=== PATIENT | female | born 1940 | race African-American/Black ===

== ENCOUNTER 2017-03-11 08:00 | Outpatient (CLI) | payer MEDICARE, OTHER | END 2017-03-11 08:01 | disposition home or self-care (01) | LOC: BICMAMMO 08:00 | PROVIDERS: ATTEND Internal Medicine Medical Oncology | DX: Z08 Encounter for follow-up examination after completed treatment for malignant neoplasm (principal); Z85.3 Personal history of malignant neoplasm of breast | CPT/HCPCS: G0279 ==

== ENCOUNTER 2017-04-28 10:58 | Outpatient (CLI) | payer MEDICARE, OTHER ==
[2017-04-28 12:58] LABS: ALT (SGPT) 16 U/L (8-55); AST (SGOT) 20 U/L (5-34); Albumin 3.6 g/dL (3.4-4.8); Alkaline Phosphatase 44 U/L (40-150); Anion Gap 12 mmol/L (10-20); BUN (Urea Nitrogen) 20 mg/dL (9.8-20.1); Bilirubin, Total 0.5 mg/dL (0.2-1.2); Calc. Creatinine Clearance 0 mL/min (70-130); Calcium 10.9 mg/dL (7.8-10.44); Carbon Dioxide 28 mmol/L (23-31); Chloride 106 mmol/L (98-107); Estimated GFR-MDRD 81; Globulin 2.3 g/dL (2.4-3.5); Glucose 85 mg/dL (83-110); Protein, Total 5.9 g/dL (6.0-8.3); Sodium 142 mmol/L (136-145)
[2017-04-28 13:07] LABS: Eosinophils 2 % (0-10); Hemoglobin 11.6 g/dL (12.0-16.0); Lymphocytes 40 % (21-51); MDiff Complete? YES; Mean Corpuscular HGB CONC 31.4 g/dL (32.0-36.0); Mean Corpuscular Hemoglobin 32.9 pg (27.0-31.0); Monocytes 10 % (0-10); Neutrophil 43 % (42-75); Platelet Count 131 thou/uL (130-400); Polychromasia SLIGHT = 2-3 cells (100X) (0-2/hpf); RBC Distribution Width 11.5 % (11.5-14.5); Reactive Lymphocytes 5 % (0-10); Red Blood Cell (RBC) Count 3.53 mill/uL (4.20-5.40); White Blood Cell (WBC) Count 4.3 thou/uL (4.8-10.8)
--- NOTE | 2017-04-29 23:38 | EKG ---
Test Reason : Blood Pressure : / mmHG Vent. Rate : 059 BPM Atrial Rate : 059 BPM P-R Int : 124 ms QRS Dur : 080 ms QT Int : 426 ms P-R-T Axes : 047 058 181 degrees QTc Int : 421 ms Sinus bradycardia Abnormal ECG When compared with ECG of 16-APR-2016 08:46, ST no longer depressed in Anterior leads Confirmed by Jose Alberto BENAVIDEZ ([id number]) on 04/29/2017 11:37:51 PM Referred By: NENITA Confirmed By:Jose Alberto BENAVIDEZ
== END 2017-04-28 10:59 | disposition home or self-care (01) ==
LOC: LABBT 10:58
PROVIDERS: ATTEND Surgery
DX: Z01.812 Encounter for preprocedural laboratory examination (principal); Z01.810 Encounter for preprocedural cardiovascular examination; Z85.3 Personal history of malignant neoplasm of breast; Z88.2 Allergy status to sulfonamides; Z88.0 Allergy status to penicillin
CPT/HCPCS: 80053; 85025; 93005; 93010

== ENCOUNTER 2017-04-30 05:40 | Day surgery (SDC) | payer MEDICARE, OTHER ==
[2017-04-28 11:25] VITALS: BMI 33.2
[2017-04-30] MEDS ORDERED: Lidocaine 2% w/Epinephrine 1:200K 20 ML VIAL ONE (06:41)
[2017-04-30] MEDS ORDERED: Bupivacaine 0.25% HCL 30 ML VIAL ONE (06:41)
[2017-04-30] MEDS ORDERED: Fentanyl 100 MCG/2 ML VIAL ONE (06:54)
[2017-04-30] MEDS ORDERED: Levofloxacin 500 mg/D5W 100 ml Premix Bag ONE (07:25)
--- NOTE | 2017-04-30 12:25 | OP ---
PREOPERATIVE DIAGNOSIS: Completed chemotherapy. SURGEON: Arnulfo Zee M.D. PROCEDURE PERFORMED: Removal of MediPort. INDICATIONS: A 77-year-old female who has completed chemotherapy for breast cancer and no longer nee ds MediPort. She is here for removal. FINDINGS: Intact system and catheter. DESCRIPTION OF PROCEDURE: After informed consent was obtained, the patient was taken to the operatin g room and given total intravenous anesthesia, placed in the supine position. Her chest was prepped and draped in the usual fashion. Local anesthesia infiltrated subcutaneously and deep with 0.5% Dominguez kieran. A transverse incision was performed through the old scar. Subcu divided sharply down to the M ediPort. The sutures were removed. The MediPort was removed. The catheter removed. The channel th at has housed, the catheter was ligated with a [id number] of 3-0 Vicryl. Hemostasis achieved wi electrocautery. Subcutaneous reapproximated with interrupted 3-0 Vicryl. Skin closed with a runn ing subcuticular 4-0 Rapide. Steri-Strips applied. Sterile bandage applied. The patient tolerated the procedure well and transferred to recovery in good condition. Sponge and needle count verified c orrect x2.
== END 2017-04-30 09:17 | disposition home or self-care (01) ==
LOC: SDC 05:40
PROVIDERS: ATTEND Surgery
PROC: 0JPT3WZ Removal of Totally Implantable Vascular Access Device from Trunk Subcutaneous Tissue and Fascia, Percutaneous Approach (ICD-10-PCS; principal; 2017-04-30)
DX: Z45.2 Encounter for adjustment and management of vascular access device (principal); I10 Essential (primary) hypertension; E78.00 Pure hypercholesterolemia, unspecified; M19.90 Unspecified osteoarthritis, unspecified site; E05.90 Thyrotoxicosis, unspecified without thyrotoxic crisis or storm; E89.2 Postprocedural hypoparathyroidism; E78.5 Hyperlipidemia, unspecified; M81.0 Age-related osteoporosis without current pathological fracture; Z85.3 Personal history of malignant neoplasm of breast; Z92.21 Personal history of antineoplastic chemotherapy; Z83.3 Family history of diabetes mellitus; Z80.9 Family history of malignant neoplasm, unspecified; Z79.01 Long term (current) use of anticoagulants; Z79.82 Long term (current) use of aspirin; Z79.899 Other long term (current) drug therapy; Z88.2 Allergy status to sulfonamides; Z88.0 Allergy status to penicillin; Z88.8 Allergy status to other drugs, medicaments and biological substances; Z90.711 Acquired absence of uterus with remaining cervical stump; Z98.41 Cataract extraction status, right eye; Z98.42 Cataract extraction status, left eye; Z98.890 Other specified postprocedural states
CPT/HCPCS: J1956; J3010; S0020

== ENCOUNTER 2017-05-28 09:13 | Outpatient (CLI) | payer MEDICARE, OTHER ==
--- NOTE | 2017-05-28 12:19 | ULT ---
COMPLETE BILATERAL RENAL ULTRASOUND: HISTORY: A 77-year-old female with microhematuria. FINDINGS: The right kidney measures 9.3 x 3.7 x 3.6 cm. The left kidney measures 9.8 x 4.7 x 4 cm. No renal h ydronephrosis or perinephric process. The bladder is only minimally full but is unremarkable. IMPRESSION: Unremarkable bilateral renal ultrasound. No hydronephrosis or other acute process. POS: KATHLEEN
== END 2017-05-28 09:14 | disposition home or self-care (01) ==
LOC: ULT 09:13
PROVIDERS: ATTEND Urology
DX: R31.29 Other microscopic hematuria (principal)
CPT/HCPCS: 76770

== ENCOUNTER 2018-04-08 08:54 | Outpatient (CLI) | payer MEDICARE, OTHER | END 2018-04-08 08:55 | disposition home or self-care (01) | LOC: BICMAMMO 08:54 | PROVIDERS: ATTEND Internal Medicine Medical Oncology | DX: Z08 Encounter for follow-up examination after completed treatment for malignant neoplasm (principal); Z85.3 Personal history of malignant neoplasm of breast; Z80.3 Family history of malignant neoplasm of breast | CPT/HCPCS: 77066; G0279 ==

== ENCOUNTER 2019-04-09 13:53 | Outpatient (CLI) | payer MEDICARE, OTHER ==
--- NOTE | 2019-04-09 14:36 | MMO ---
Bilateral MAMMO Bilat Diag [facility]DI+PATY. CLINICAL HISTORY: Patient is 79 years old and is seen for diagnostic exam. The patient has no family history of breast cancer. 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 The patient has a history of right Ultrasound Guided Core Biopsy in July, and left Lumpectomy in July, - malignant. VIEWS: The views performed were: bilateral craniocaudal with tomosynthesis; bilateral mediolateral oblique with tomosynthesis; and bilateral mediolateral with tomosynthesis. FILMS COMPARED: The present examination has been compared to prior imaging studies performed at [facility] on 06/27/2015, 03/06/2016, 03/11/2017 and 04/08/2018. This study has been interpreted with the assistance of computer-aided detection. MAMMOGRAM FINDINGS: The breasts are heterogeneously dense, which could obscure a lesion on mammography. Finding 1: There are stable areas of skin thickening and stable post operative changes seen in both breasts. Finding 2: There are stable benign appearing calcifications seen in both breasts. There are no suspicious masses, suspicious calcifications, or new areas of architectural distortion. IMPRESSION: THERE IS NO MAMMOGRAPHIC EVIDENCE OF MALIGNANCY. A ROUTINE FOLLOW-UP MAMMOGRAM IN 1 YEAR IS RECOMMENDED. THE RESULTS OF THIS EXAM WERE SENT TO THE PATIENT. ACR BI-RADS Category 2 - Benign finding MAMMOGRAPHY NOTE: 1. A negative mammogram report should not delay a biopsy if a dominant of clinically suspicious mass is present. 2. Approximately 10% to 15% of breast cancers are not detected by mammography. 3. Adenosis and dense breasts may obscure an underlying neoplasm. Reported by: DOM NINO MD Electonically Signed: [id number]
== END 2019-04-09 13:54 | disposition home or self-care (01) ==
LOC: BICMAMMO 13:53
PROVIDERS: ATTEND Internal Medicine Medical Oncology
DX: D05.01 Lobular carcinoma in situ of right breast (principal)
CPT/HCPCS: 77066; G0279

== ENCOUNTER 2019-05-26 13:37 | Outpatient (CLI) | payer MEDICARE, OTHER ==
--- NOTE | 2019-05-26 15:36 | MRI ---
EXAM: LEFT SHOULDER MRI WITHOUT IV CONTRAST: 05/26/19 HISTORY: Rotator cuff impingement syndrome. Left shoulder pain with painful range of motion. AC joint arthrosis changes are noted. Very marked downsloping of the lateral acromion with fluid wit hin the subacromial and subdeltoid bursa. Large circumscribed area of ossification overlying the infr aspinatus tendon insertion region. Posterior infraspinatus tendon insertion region evidence for calci fic peritendinosis and given the perimuscular and intermuscular fat stranding, evidence for associate d paratendonitis. Very severe tendinopathy with high grade partial thickness undersurface and minimal ly delaminating tear of the supraspinatus tendon and infraspinatus tendon. Evidence for biceps tendinopathy. Poorly defined superior labrum with some associated abnormal signal evidence for a SLAP tear. Subscapularis tendinopathy. Moderate muscle volume loss of the supraspinat us and superior aspect of the infraspinatus muscles. IMPRESSION: Large focus of calcific paratendonitis with some intermuscular and perimuscular fat stranding. Moderate amount of fluid within the subacromial subdeltoid bursal regions. Very severe downsloping of the lateral acromion as well as some undersurface fraying of the distal cl avicle. Evidence for a SLAP tear. Undersurface and minimally delaminating tears of the supraspinatus and infraspinatus tendons without a complete full thickness retracted tendon tear. Evidence for synov itis and capsulitis particularly in the region of the anterior superior subcoracoid recess. Other fi ndings as above. POS: KATHLEEN
== END 2019-05-26 13:38 | disposition home or self-care (01) ==
LOC: BICMRI 13:37
PROVIDERS: ATTEND Student in an Organized Health Care Education/Training Program
DX: M75.32 Calcific tendinitis of left shoulder (principal); M75.42 Impingement syndrome of left shoulder; M75.102 Unspecified rotator cuff tear or rupture of left shoulder, not specified as traumatic

== ENCOUNTER 2019-08-27 07:23 | Outpatient (CLI) | payer MEDICARE, OTHER ==
[2019-08-27 10:41] LABS: INR-International Normal Ratio 1.5; PTT 34.3 SEC (22.9-36.1); Prothrombin Time 17.6 sec (12.0-14.7)
[2019-08-27 11:02] LABS: Anion Gap 9 mmol/L (10-20); BUN (Urea Nitrogen) 15 mg/dL (9.8-20.1); Calc. Creatinine Clearance 0 mL/min (70-130); Calcium 10.3 mg/dL (7.8-10.44); Carbon Dioxide 33 mmol/L (23-31); Chloride 104 mmol/L (98-107); Estimated GFR-MDRD 71; Glucose 81 mg/dL (83-110); Potassium 3.1 mmol/L (3.5-5.1); Sodium 143 mmol/L (136-145)
[2019-08-27 11:14] LABS: #Eosinphils 0.1 thou/uL (0.0-0.7); #Lymphocytes 1.8 thou/uL (1.20-3.40); #Monocytes 0.4 thou/uL (0.11-0.59); #Neutrophils 2.6 thou/uL (1.40-6.50); %Eosinophils 1.4 % (0.0-10.0); %Lymphocytes 36.6 % (21.0-51.0); %Monocytes 7.3 % (0.0-10.0); %Neutrophils 53.7 % (42.0-75.0); Hemoglobin 12.5 g/dL (12.0-16.0); MDiff Complete? YES; Macrocytosis SLIGHT = 6-15 cells (100X) (0-5/hpf); Mean Corpuscular HGB CONC 31.6 g/dL (32.0-36.0); Mean Corpuscular Hemoglobin 33.1 pg (27.0-31.0); Mean Platelet Volume 7.5 fL (7.4-10.4); Platelet Count 134 thou/uL (130-400); Platelet Morphology Comment Appears Adequate; RBC Distribution Width 12.1 % (11.5-14.5); Red Blood Cell (RBC) Count 3.77 mill/uL (4.20-5.40); White Blood Cell (WBC) Count 4.9 thou/uL (4.8-10.8)
[2019-08-27 19:38] LABS: SARS-CoV-2 MS2 Positive; SARS-CoV-2 N Gene Negative; SARS-CoV-2 S Gene Negative; SARS-CoV-2 orf1ab Negative
--- NOTE | 2019-09-03 23:25 | EKG ---
Test Reason : Blood Pressure : / mmHG Vent. Rate : 103 BPM Atrial Rate : 083 BPM P-R Int : 000 ms QRS Dur : 074 ms QT Int : 348 ms P-R-T Axes : 000 072 211 degrees QTc Int : 455 ms Atrial fibrillation with rapid ventricular response Abnormal ECG When compared with ECG of 28-APR-2017 11:50, Atrial fibrillation has replaced Sinus rhythm Vent. rate has increased BY 44 BPM T wave inversion less evident in Lateral leads Confirmed by Jose Alberto BENAVIDEZ ([id number]) on 09/03/2019 11:24:40 PM Referred By: GAGE Confirmed By:Jose Alberto BENAVIDEZ
== END 2019-08-27 07:24 | disposition home or self-care (01) ==
LOC: LABBT 07:23
PROVIDERS: ATTEND Internal Medicine Cardiovascular Disease
DX: Z01.818 Encounter for other preprocedural examination (principal); Z11.59 Encounter for screening for other viral diseases; I48.91 Unspecified atrial fibrillation
CPT/HCPCS: 80048; 85025; 85610; 85730; 93005; U0003; 87635; 93010

== ENCOUNTER 2020-04-10 10:11 | Outpatient (CLI) | payer MEDICARE, OTHER ==
--- NOTE | 2020-04-10 11:10 | MMO ---
Bilateral MAMMO Bilat Diag DDI+PATY. CLINICAL HISTORY: Patient is 80 years old and is seen for diagnostic exam. The patient has no family history of breast cancer. 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 The patient has a history of right Ultrasound Guided Core Biopsy in July, and left Lumpectomy in July, - malignant. VIEWS: The views performed were: bilateral craniocaudal with tomosynthesis; bilateral mediolateral oblique with tomosynthesis; and bilateral mediolateral with tomosynthesis. FILMS COMPARED: The present examination has been compared to prior imaging studies performed at [facility] on 03/06/2016, 03/11/2017, 04/08/2018 and 04/09/2019. This study has been interpreted with the assistance of computer-aided detection. MAMMOGRAM FINDINGS: The breasts are heterogeneously dense, which could obscure a lesion on mammography. There are stable post operative changes seen in both breasts. There are no suspicious masses, suspicious calcifications, or new areas of architectural distortion. IMPRESSION: THERE IS NO MAMMOGRAPHIC EVIDENCE OF MALIGNANCY. A ROUTINE FOLLOW-UP MAMMOGRAM IN 1 YEAR IS RECOMMENDED. THE RESULTS OF THIS EXAM WERE SENT TO THE PATIENT. ACR BI-RADS Category 2 - Benign finding MAMMOGRAPHY NOTE: 1. A negative mammogram report should not delay a biopsy if a dominant of clinically suspicious mass is present. 2. Approximately 10% to 15% of breast cancers are not detected by mammography. 3. Adenosis and dense breasts may obscure an underlying neoplasm. Reported by: FRANCES GUAJARDO MD Electonically Signed: [id number]
== END 2020-04-10 10:12 | disposition home or self-care (01) ==
LOC: BICMAMMO 10:11
PROVIDERS: ATTEND Internal Medicine Medical Oncology
DX: Z08 Encounter for follow-up examination after completed treatment for malignant neoplasm (principal); Z85.3 Personal history of malignant neoplasm of breast
CPT/HCPCS: 77066; G0279

== ENCOUNTER → 2020-04-25 | Day surgery (SDC) | payer MEDICARE, OTHER ==
[2020-04-24 10:02] VITALS: BMI 37.0
[~2020-04-25] MED LIST: PROPOFOL 20 ML ONE
--- NOTE | 2020-04-25 09:44 | OP ---
DATE OF PROCEDURE: 04/25/2020 PROCEDURE PERFORMED: Transesophageal echocardiogram. INDICATIONS FOR PROCEDURE: A 80-year-old woman with mitral regurgitation. DESCRIPTION OF PROCEDURE: The patient was taken to the PACU. The patient sedated by Anesthesiology. A transesophageal probe was placed into the distal esophagus and stomach. Echocardiographic images were obtained. The transesophageal probe was removed. FINDINGS: 1. Normal left ventricular systolic function. 2. Biatrial enlargement. 3. Normal mitral and aortic valves. 4. Moderate mitral regurgitation. 5. Mild tricuspid regurgitation. 6. No thrombus noted in left atrial or left atrial appendage. 7. Atherosclerotic debris in the descending aorta. IMPRESSION: Moderate mitral regurgitation with no thrombus in the left atrium or left atrial appendage. Job ID: [id number]
--- NOTE | 2020-04-25 10:13 | OP ---
DATE OF PROCEDURE: 04/25/2020 PROCEDURE PERFORMED: Electrocardioversion. INDICATIONS: A 80-year-old woman, with paroxysmal atrial fibrillation. DESCRIPTION OF PROCEDURE: The patient was taken to the PACU. The patient was sedated by Anesthesiology. The patient was shocked with 200 joules of synchronized electricity. The patient converted to normal sinus rhythm. IMPRESSION: Successful electrocardioversion. Job ID: [id number]
--- NOTE | 2020-04-25 11:28 | EKG ---
Test Reason : PRE-EMERALD Blood Pressure : / mmHG Vent. Rate : 128 BPM Atrial Rate : 326 BPM P-R Int : 000 ms QRS Dur : 066 ms QT Int : 354 ms P-R-T Axes : 000 049 227 degrees QTc Int : 516 ms Atrial flutter with variable A-V block with premature ventricular or aberrantly conducted complexes Abnormal ECG No previous ECGs available Confirmed by POORNIMA ALMONTE ([id number]) on 04/25/2020 11:28:22 AM Referred By: GAGE Confirmed By:POORNIMA ALMONTE
--- NOTE | 2020-04-25 11:30 | EKG ---
Test Reason : S/P EMERALD Blood Pressure : / mmHG Vent. Rate : 081 BPM Atrial Rate : 061 BPM P-R Int : 138 ms QRS Dur : 070 ms QT Int : 488 ms P-R-T Axes : 043 052 163 degrees QTc Int : 566 ms Sinus rhythm Premature atrial complexes Supraventricular tachycardia Prolonged QT Abnormal ECG No previous ECGs available Confirmed by POORNIMA ALMONTE ([id number]) on 04/25/2020 11:29:49 AM Referred By: GAGE Confirmed By:POORNIMA ALMONTE
== END ==
LOC: CCL 05:54
PROVIDERS: ATTEND Internal Medicine Cardiovascular Disease
PROC: B245ZZ4 Ultrasonography of Left Heart, Transesophageal (ICD-10-PCS; principal; 2020-04-25)
PROC: 5A2204Z Restoration of Cardiac Rhythm, Single (ICD-10-PCS; 2020-04-25)
DX: I48.0 Paroxysmal atrial fibrillation (principal); I08.1 Rheumatic disorders of both mitral and tricuspid valves; E03.9 Hypothyroidism, unspecified; M19.90 Unspecified osteoarthritis, unspecified site; I10 Essential (primary) hypertension; E78.2 Mixed hyperlipidemia; E66.8 Other obesity; Z68.37 Body mass index [BMI] 37.0-37.9, adult; Z79.01 Long term (current) use of anticoagulants; Z79.899 Other long term (current) drug therapy; Z88.0 Allergy status to penicillin; Z88.2 Allergy status to sulfonamides; Z88.8 Allergy status to other drugs, medicaments and biological substances
CPT/HCPCS: 92960; 93005; 93010; 93312; J2704

== ENCOUNTER 2020-08-04 09:35 | Outpatient (CLI) | payer MEDICARE, OTHER ==
[2020-08-04 12:50] LABS: Anion Gap 13 mmol/L (10-20); BUN (Urea Nitrogen) 18 mg/dL (9.8-20.1); Calc. Creatinine Clearance 0 mL/min (70-130); Calcium 10.4 mg/dL (7.8-10.44); Carbon Dioxide 29 mmol/L (23-31); Chloride 105 mmol/L (98-107); Glucose 102 mg/dL (83-110); Potassium 3.3 mmol/L (3.5-5.1); Sodium 144 mmol/L (136-145)
[2020-08-04 13:10] LABS: INR-International Normal Ratio 1.1; PTT 26.1 sec (22.0-33.0); Prothrombin Time 12.3 sec (9.5-12.1)
[2020-08-04 20:11] LABS: SARS-CoV-2 PCR by NAA Not Detected (NotDetected)
== END 2020-08-04 09:36 | disposition home or self-care (01) ==
LOC: LABBT 09:35
PROVIDERS: ATTEND Internal Medicine Cardiovascular Disease
DX: Z01.818 Encounter for other preprocedural examination (principal); I48.91 Unspecified atrial fibrillation
CPT/HCPCS: 80048; 85610; 85730; 93005; U0003; U0005; 87635; 93010

== ENCOUNTER → 2020-08-07 | Day surgery (SDC) | payer MEDICARE, OTHER ==
[2020-08-04 13:01] VITALS: BMI 35.5
[~2020-08-07] MED LIST changes: +Ketamine 50 MG/ML (10ML VIAL) ONE; +PHENYLEPHRINE-NS 100 MCG/ML 10 ML SYRINGE ONE; +Phenylephrine 10 MG/ML VIAL ONE
== END ==
LOC: CCL 05:30
PROVIDERS: ATTEND Internal Medicine Cardiovascular Disease
PROC: B24BZZ4 Ultrasonography of Heart with Aorta, Transesophageal (ICD-10-PCS; principal; 2020-08-07)
PROC: 5A2204Z Restoration of Cardiac Rhythm, Single (ICD-10-PCS; 2020-08-07)
DX: I48.0 Paroxysmal atrial fibrillation (principal); I08.3 Combined rheumatic disorders of mitral, aortic and tricuspid valves; I70.0 Atherosclerosis of aorta; I10 Essential (primary) hypertension; E78.2 Mixed hyperlipidemia; E89.2 Postprocedural hypoparathyroidism; M17.0 Bilateral primary osteoarthritis of knee; M81.0 Age-related osteoporosis without current pathological fracture; E03.9 Hypothyroidism, unspecified; E66.9 Obesity, unspecified; Z68.35 Body mass index [BMI] 35.0-35.9, adult; Z79.01 Long term (current) use of anticoagulants; Z79.899 Other long term (current) drug therapy; Z88.0 Allergy status to penicillin; Z88.2 Allergy status to sulfonamides; Z88.8 Allergy status to other drugs, medicaments and biological substances
CPT/HCPCS: 93005; 93010; 93312; J2370; J2704

== ENCOUNTER 2021-04-12 13:47 | Outpatient (CLI) | payer MEDICARE, OTHER | END 2021-04-12 13:48 | disposition home or self-care (01) | LOC: BICMAMMO 13:47 | PROVIDERS: ATTEND Internal Medicine Medical Oncology | DX: Z08 Encounter for follow-up examination after completed treatment for malignant neoplasm (principal); Z85.3 Personal history of malignant neoplasm of breast | CPT/HCPCS: 77066; G0279 ==

== ENCOUNTER 2022-05-21 10:30 | Outpatient (CLI) | payer MEDICARE, OTHER | END 2022-05-21 10:31 | disposition home or self-care (01) | LOC: BICMAMMO 10:30 | PROVIDERS: ATTEND Internal Medicine Medical Oncology | DX: Z12.31 Encounter for screening mammogram for malignant neoplasm of breast (principal); R92.1 Mammographic calcification found on diagnostic imaging of breast; Z98.890 Other specified postprocedural states | CPT/HCPCS: 77063; 77067 ==

== ENCOUNTER 2022-07-03 14:51 | Outpatient (CLI) | payer MEDICARE, OTHER | END 2022-07-03 14:52 | disposition home or self-care (01) | LOC: BICRAD 14:51 | PROVIDERS: ATTEND Student in an Organized Health Care Education/Training Program | DX: R60.0 Localized edema (principal); I51.7 Cardiomegaly | CPT/HCPCS: 36415; 71045; 80048; 80061 ==

== ENCOUNTER 2023-05-27 11:10 | Outpatient (CLI) | payer MEDICARE, OTHER | END 2023-05-27 11:11 | disposition home or self-care (01) | LOC: BICMAMMO 11:10 | PROVIDERS: ATTEND Internal Medicine Medical Oncology | DX: Z12.31 Encounter for screening mammogram for malignant neoplasm of breast (principal); Z85.3 Personal history of malignant neoplasm of breast; Z91.89 Other specified personal risk factors, not elsewhere classified; Z98.890 Other specified postprocedural states | CPT/HCPCS: 77063; 77067 ==

== ENCOUNTER 2023-06-09 08:51 | Outpatient (CLI) | payer MEDICARE, OTHER | END 2023-06-09 08:52 | disposition home or self-care (01) | LOC: BICMAMMO 08:51 | PROVIDERS: ATTEND Internal Medicine Medical Oncology | DX: M85.851 Other specified disorders of bone density and structure, right thigh (principal); M85.852 Other specified disorders of bone density and structure, left thigh | CPT/HCPCS: 77080 ==

== ENCOUNTER 2023-10-21 11:11 | Observation (INO) | payer MEDICARE, OTHER ==
[~2023-10-21 11:11] MED LIST changes: +Iopamidol-370 76% 500 ML MDV (1 ML CHARGE) ONE; -Ketamine 50 MG/ML (10ML VIAL) ONE; -PHENYLEPHRINE-NS 100 MCG/ML 10 ML SYRINGE ONE; -PROPOFOL 20 ML ONE; -Phenylephrine 10 MG/ML VIAL ONE
[2023-10-21 12:46] LABS: #Basophils 0.03 10x3/uL (0.0-0.2); %Basophils 0.5 % (0.0-1.0); %Eosinophils 1.1 % (0.0-10.0); %Lymphocytes 28.1 % (21.0-51.0); %Monocytes 10.1 % (0.0-10.0); %Neutrophils 59.8 % (42.0-75.0); Hematocrit 45.5 % (36.0-47.0); Hemoglobin 14.9 g/dL (12.0-16.0); Mean Corpuscular HGB CONC 32.7 g/dL (32.0-36.0); Mean Corpuscular Hemoglobin 32.3 pg (27.0-31.0); Mean Corpuscular Volume 98.5 fL (78.0-98.0); Mean Platelet Volume 9.5 fL (7.4-10.4); Platelet Count 165 10x3/uL (130-400); RBC Distribution Width 12.1 % (11.5-14.5); Red Blood Cell (RBC) Count 4.62 mill/uL (4.20-5.40)
[2023-10-21 13:01] LABS: ALT (SGPT) 32 U/L (8-55); AST (SGOT) 34 U/L (5-34); Albumin 3.3 g/dL (3.4-4.8); Alkaline Phosphatase 90 U/L (40-110); Anion Gap 15 mmol/L (10-20); BUN (Urea Nitrogen) 22 mg/dL (9.8-20.1); Bilirubin, Total 0.9 mg/dL (0.2-1.2); Calc. Creatinine Clearance 0 mL/min (70-130); Calcium 10.8 mg/dL (7.8-10.44); Carbon Dioxide 28 mmol/L (23-31); Chloride 95 mmol/L (98-107); Estimated GFR 48; Globulin 3.5 g/dL (2.4-3.5); Glucose 91 mg/dL (83-110); Lipase 189 U/L (8-78); Potassium 4.1 mmol/L (3.5-5.1); Protein, Total 6.8 g/dL (5.8-8.1); Sodium 134 mmol/L (136-145)
[2023-10-21 13:04] LABS: Troponin I 0.025 ng/mL (< 0.028)
[2023-10-21 13:12] LABS: INR-International Normal Ratio 2.3; Prothrombin Time 25.1 sec (12.0-14.7)
[2023-10-21 13:13] LABS: PTT 40.4 sec (22.9-36.1)
[2023-10-21] MEDS ORDERED: Ondansetron ODT 4 MG TAB PO PRN (15:22)
[2023-10-21] MEDS ORDERED: Acetaminophen 325 MG TAB PO PRN (15:22)
[2023-10-21] MEDS ORDERED: Loratadine 10 MG TAB PO PRN (16:09)
[2023-10-21 16:25] LABS: Bilirubin Negative (Negative); Blood, Urine 1+ (Negative); CAUTI Indications for Culture Pelvic or flank pain; Clarity Clear (Clear); Glucose, Urine (Dipstick) >=1000 mg/dL (Negative); Ketone, Urine Negative (Negative); Leukocyte 75 Leu/uL (Negative); Nitrite Negative (Negative); Protein, Urine (Dipstick) Negative (Neg-Trace); Urobilinogen Normal mg/dL (Less than 2); pH, Urine 6.5 (5.0-9.0)
[2023-10-21 16:40] LABS: Bacteria/HPF Rare-Few HPF (None Seen)
[2023-10-21 16:41] LABS: Urine Culture Reflex Yes Yes; Yeast-Budding Rare HPF (None Seen)
[2023-10-21] MEDS ORDERED: Fluticasone Propionate Nasal Spray 16 gm Bottle NASAL PRN (17:10)
[2023-10-21] MEDS ORDERED: Lidocaine 4% Patch TD PRN (17:14)
[2023-10-21 17:53] VITALS: BMI 36.1
[2023-10-21] MEDS: Lidocaine 2% Viscous 10 mL, Alum & Magn 30 mL SSW SCH (18:03)
[2023-10-21] MEDS: Ezetimibe 10 MG TAB PO SCH (21:45)
[2023-10-21] MEDS: Apixaban 5 MG TAB PO SCH (21:45)
[2023-10-21] MEDS: Lactated Ringer's 1,000 ML IV SCH (21:45)
[2023-10-21] MEDS: Atorvastatin Calcium 40 MG TAB PO SCH (21:45)
[2023-10-21] MEDS: Transdermal Patch Removal TOP SCH (21:46)
[2023-10-22 05:20] LABS: #Basophils Less than 0.03 10x3/uL (0.0-0.2); %Basophils 0.4 % (0.0-1.0); %Eosinophils 1.4 % (0.0-10.0); %Lymphocytes 27.1 % (21.0-51.0); %Monocytes 16.5 % (0.0-10.0); %Neutrophils 54.2 % (42.0-75.0); Hematocrit 44.1 % (36.0-47.0); Hemoglobin 14.4 g/dL (12.0-16.0); Mean Corpuscular HGB CONC 32.7 g/dL (32.0-36.0); Mean Corpuscular Hemoglobin 32.5 pg (27.0-31.0); Mean Corpuscular Volume 99.5 fL (78.0-98.0); Mean Platelet Volume 9.7 fL (7.4-10.4); Platelet Count 150 10x3/uL (130-400); RBC Distribution Width 12.3 % (11.5-14.5); Red Blood Cell (RBC) Count 4.43 mill/uL (4.20-5.40)
[2023-10-22 05:42] LABS: Albumin 2.7 g/dL (3.4-4.8); Alkaline Phosphatase 76 U/L (40-110); Anion Gap 14 mmol/L (10-20); BUN (Urea Nitrogen) 17 mg/dL (9.8-20.1); Calc. Creatinine Clearance 75 mL/min (70-130); Carbon Dioxide 20 mmol/L (23-31); Chloride 107 mmol/L (98-107); Cholesterol 95 mg/dl (< 200 Desired); Estimated GFR 76; Globulin 3.1 g/dL (2.4-3.5); Glucose 68 mg/dL (83-110); Potassium 4.8 mmol/L (3.5-5.1); Protein, Total 5.8 g/dL (5.8-8.1); Sodium 136 mmol/L (136-145)
[2023-10-22 05:43] LABS: ALT (SGPT) 26 U/L (8-55); AST (SGOT) 30 U/L (5-34); Cardiac Risk 2.4 (Less than 4.5); HDL Cholesterol 39 mg/dL (>60 Neg Risk); LDL Cholesterol, Calculated 44 mg/dL; Triglycerides 60 mg/dL (Less than 150)
[2023-10-22] MEDS: Oxybutynin 5 MG TAB PO SCH (09:40)
[2023-10-22] MEDS: Potassium Chloride 20 MEQ TAB PO SCH (09:40)
[2023-10-22] MEDS: Empagliflozin 10 MG TAB PO SCH (09:41)
[2023-10-22] MEDS: Pantoprazole DR 40 MG TAB PO SCH (09:41)
[2023-10-22 12:05] VITALS: BP 128/80; TEMP 97.4
[2023-10-22] MEDS: Metoprolol Tartrate 25 MG TAB PO SCH (16:40)
== END 2023-10-22 17:49 | disposition home or self-care (01) ==
LOC: ERS 11:11 → 2SW 15:25
PROVIDERS: ADMIT Student in an Organized Health Care Education/Training Program; ATTEND Student in an Organized Health Care Education/Training Program
DX: K85.90 Acute pancreatitis without necrosis or infection, unspecified (principal); E87.1 Hypo-osmolality and hyponatremia; I48.20 Chronic atrial fibrillation, unspecified; I11.0 Hypertensive heart disease with heart failure; I50.30 Unspecified diastolic (congestive) heart failure; K21.9 Gastro-esophageal reflux disease without esophagitis; G47.30 Sleep apnea, unspecified; M17.9 Osteoarthritis of knee, unspecified; E87.6 Hypokalemia; N39.46 Mixed incontinence; M10.9 Gout, unspecified; F32.9 Major depressive disorder, single episode, unspecified; M85.80 Other specified disorders of bone density and structure, unspecified site; E21.3 Hyperparathyroidism, unspecified; R82.81 Pyuria; Z79.01 Long term (current) use of anticoagulants; Z79.899 Other long term (current) drug therapy; Z88.2 Allergy status to sulfonamides; Z88.8 Allergy status to other drugs, medicaments and biological substances; Z88.0 Allergy status to penicillin; Z90.49 Acquired absence of other specified parts of digestive tract
CPT/HCPCS: 71045; 74177; 80053 ×2; 80061; 81001; 83605; 83690; 84484; 85025 ×2; 85610; 85730; 87086; 93005; 96360; 97116; 99285; G0378 ×3; J7120; Q9967; 36415

== ENCOUNTER 2024-12-07 15:43 | Emergency (ER) | payer MEDICARE, OTHER ==
[2024-12-07 17:37] LABS: #Basophils 0.04 10x3/uL (0.0-0.2); #Eosinophils 0.09 10x3/uL (0.0-0.7); #Monocytes 0.90 10x3/uL (0.11-0.59); #Neutrophils 4.70 10x3/uL (1.40-6.50); %Basophils 0.5 % (0.0-1.0); %Eosinophils 1.2 % (0.0-10.0); %Lymphocytes 23.1 % (21.0-51.0); %Monocytes 12.0 % (0.0-10.0); %Neutrophils 62.8 % (42.0-75.0); Hematocrit 37.8 % (36.0-47.0); Hemoglobin 11.7 g/dL (12.0-16.0); Mean Corpuscular Hemoglobin 32.9 pg (27.0-31.0); Mean Corpuscular Volume 106.2 fL (78.0-98.0); Platelet Count 183 10x3/uL (130-400); Red Blood Cell (RBC) Count 3.56 mill/uL (4.20-5.40); White Blood Cell (WBC) Count 7.49 10x3/uL (4.8-10.8)
[2024-12-07 17:57] LABS: ALT (SGPT) 21 U/L (Less than 34); AST (SGOT) 27 U/L (11-34); Albumin 3.4 g/dL (3.1-4.5); Alkaline Phosphatase 95 U/L (40-110); Anion Gap 17 mmol/L (10-20); BUN (Urea Nitrogen) 25 mg/dL (9.8-20.1); Bilirubin, Total 4.6 mg/dL (0.3-1.2); Calc. Creatinine Clearance 0 mL/min (70-130); Calcium 9.9 mg/dL (7.8-10.44); Carbon Dioxide 27 mmol/L (23-31); Chloride 102 mmol/L (98-107); Globulin 2.7 g/dL (2.4-3.5); Glucose 86 mg/dL (83-110); Potassium 3.7 mmol/L (3.5-5.1); Sodium 142 mmol/L (136-145)
== END 2024-12-07 20:41 | disposition home or self-care (01) ==
LOC: ERS 15:43
DX: E86.0 Dehydration (principal); I10 Essential (primary) hypertension; I48.91 Unspecified atrial fibrillation; Z79.01 Long term (current) use of anticoagulants
CPT/HCPCS: 80053; 84443; 84484; 85025; 93005; 96360; 96361

== ENCOUNTER 2025-01-06 07:06 | Inpatient (IN) | payer MEDICARE, OTHER ==
[2025-01-06 08:19] LABS: #Basophils 0.04 10x3/uL (0.0-0.2); #Eosinophils 0.10 10x3/uL (0.0-0.7); #Monocytes 0.62 10x3/uL (0.11-0.59); #Neutrophils 2.78 10x3/uL (1.40-6.50); %Basophils 0.9 % (0.0-1.0); %Eosinophils 2.2 % (0.0-10.0); %Lymphocytes 23.5 % (21.0-51.0); %Monocytes 13.4 % (0.0-10.0); %Neutrophils 59.8 % (42.0-75.0); Hematocrit 37.9 % (36.0-47.0); Hemoglobin 11.6 g/dL (12.0-16.0); Mean Corpuscular Hemoglobin 31.6 pg (27.0-31.0); Mean Corpuscular Volume 103.3 fL (78.0-98.0); Platelet Count 194 10x3/uL (130-400); Red Blood Cell (RBC) Count 3.67 mill/uL (4.20-5.40); White Blood Cell (WBC) Count 4.64 10x3/uL (4.8-10.8)
[2025-01-06 08:44] LABS: ALT (SGPT) 25 U/L (Less than 34); AST (SGOT) 73 U/L (11-34); Albumin 2.8 g/dL (3.1-4.5); Alkaline Phosphatase 93 U/L (40-110); Anion Gap 17 mmol/L (10-20); BUN (Urea Nitrogen) 10 mg/dL (9.8-20.1); Bilirubin, Total 0.8 mg/dL (0.3-1.2); Calc. Creatinine Clearance 0 mL/min (70-130); Calcium 9.5 mg/dL (7.8-10.44); Carbon Dioxide 28 mmol/L (23-31); Chloride 101 mmol/L (98-107); Globulin 3.5 g/dL (2.4-3.5); Glucose 93 mg/dL (83-110); Potassium 4.2 mmol/L (3.5-5.1); Sodium 142 mmol/L (136-145)
[2025-01-06] MEDS ORDERED: Pantoprazole 40 MG VIAL ONE (11:59)
[2025-01-06] MEDS: Pantoprazole 40 MG VIAL IVP SCH ×2 (12:02→20:38)
[2025-01-06] MEDS: Spironolactone 25 MG TAB PO SCH (13:10)
[2025-01-06 14:47] VITALS: BMI 34.0
[2025-01-06] MEDS: FLU (Fluad Triv) 25-26 (65UP)PF 45 MCG/0.5 ML Syringe IM ONE (15:51)
[2025-01-06] MEDS: Apixaban 5 MG TAB PO SCH (20:37)
[2025-01-06] MEDS: Metoprolol Succinate XL 100 MG ER.TAB PO SCH (20:38)
[2025-01-07 04:42] LABS: #Basophils 0.03 10x3/uL (0.0-0.2); #Eosinophils 0.11 10x3/uL (0.0-0.7); #Monocytes 0.64 10x3/uL (0.11-0.59); #Neutrophils 2.46 10x3/uL (1.40-6.50); %Basophils 0.7 % (0.0-1.0); %Eosinophils 2.5 % (0.0-10.0); %Lymphocytes 27.3 % (21.0-51.0); %Monocytes 14.3 % (0.0-10.0); %Neutrophils 55.0 % (42.0-75.0); Hematocrit 37.8 % (36.0-47.0); Hemoglobin 11.9 g/dL (12.0-16.0); Mean Corpuscular Hemoglobin 31.8 pg (27.0-31.0); Mean Corpuscular Volume 101.1 fL (78.0-98.0); Platelet Count 196 10x3/uL (130-400); Red Blood Cell (RBC) Count 3.74 mill/uL (4.20-5.40); White Blood Cell (WBC) Count 4.47 10x3/uL (4.8-10.8)
[2025-01-07 08:42] LABS: ALT (SGPT) 18 U/L (Less than 34); AST (SGOT) 27 U/L (11-34); Albumin 2.6 g/dL (3.1-4.5); Alkaline Phosphatase 86 U/L (40-110); Anion Gap 15 mmol/L (10-20); BUN (Urea Nitrogen) 9 mg/dL (9.8-20.1); Bilirubin, Total 0.8 mg/dL (0.3-1.2); Calc. Creatinine Clearance 60 mL/min (70-130); Calcium 9.3 mg/dL (7.8-10.44); Carbon Dioxide 25 mmol/L (23-31); Chloride 104 mmol/L (98-107); Globulin 2.8 g/dL (2.4-3.5); Glucose 90 mg/dL (83-110); Potassium 3.3 mmol/L (3.5-5.1); Sodium 141 mmol/L (136-145)
[2025-01-07] MEDS: Spironolactone 25 MG TAB PO SCH (09:18)
[2025-01-07 12:20] VITALS: BMI 34.0
[2025-01-08] MEDS: Calcium Carbonate 500 MG ChewTAB PO PRN (00:30)
[2025-01-08 04:33] LABS: #Basophils 0.03 10x3/uL (0.0-0.2); #Eosinophils 0.14 10x3/uL (0.0-0.7); #Monocytes 0.72 10x3/uL (0.11-0.59); #Neutrophils 3.52 10x3/uL (1.40-6.50); %Basophils 0.5 % (0.0-1.0); %Eosinophils 2.5 % (0.0-10.0); %Lymphocytes 20.4 % (21.0-51.0); %Monocytes 13.0 % (0.0-10.0); %Neutrophils 63.4 % (42.0-75.0); Hematocrit 38.4 % (36.0-47.0); Hemoglobin 12.1 g/dL (12.0-16.0); Mean Corpuscular Hemoglobin 31.9 pg (27.0-31.0); Mean Corpuscular Volume 101.3 fL (78.0-98.0); Platelet Count 179 10x3/uL (130-400); Red Blood Cell (RBC) Count 3.79 mill/uL (4.20-5.40); White Blood Cell (WBC) Count 5.55 10x3/uL (4.8-10.8)
[2025-01-08 04:50] LABS: ALT (SGPT) 17 U/L (Less than 34); AST (SGOT) 24 U/L (11-34); Albumin 2.4 g/dL (3.1-4.5); Alkaline Phosphatase 86 U/L (40-110); Anion Gap 15 mmol/L (10-20); BUN (Urea Nitrogen) 6 mg/dL (9.8-20.1); Bilirubin, Total 0.8 mg/dL (0.3-1.2); Calc. Creatinine Clearance 71 mL/min (70-130); Calcium 9.1 mg/dL (7.8-10.44); Carbon Dioxide 28 mmol/L (23-31); Chloride 104 mmol/L (98-107); Globulin 2.9 g/dL (2.4-3.5); Glucose 90 mg/dL (83-110); Potassium 3.1 mmol/L (3.5-5.1); Sodium 144 mmol/L (136-145)
[2025-01-08] MEDS: Pantoprazole 40 MG DR.TAB PO SCH (09:18)
[2025-01-08] MEDS: Furosemide 40 MG TAB PO SCH (09:18)
[2025-01-08] MEDS: Acetaminophen 325 MG TAB PO PRN (10:55)
[2025-01-08 12:54] VITALS: BP 115/66; TEMP 98.7
== END 2025-01-08 13:28 | disposition home or self-care (01) | DRG 392 ==
LOC: ERS 07:06 → ERHOLD 09:12 → 2NO 14:24 → OBSVTOIN 01-07 15:42
PROVIDERS: ADMIT Student in an Organized Health Care Education/Training Program; ATTEND Student in an Organized Health Care Education/Training Program
DX: K21.9 Gastro-esophageal reflux disease without esophagitis (principal); I48.21 Permanent atrial fibrillation; I50.32 Chronic diastolic (congestive) heart failure; R00.1 Bradycardia, unspecified; I11.0 Hypertensive heart disease with heart failure; E87.6 Hypokalemia; E78.5 Hyperlipidemia, unspecified; M17.0 Bilateral primary osteoarthritis of knee; Z96.651 Presence of right artificial knee joint; E78.00 Pure hypercholesterolemia, unspecified; Z96.652 Presence of left artificial knee joint; Z88.2 Allergy status to sulfonamides; Z88.0 Allergy status to penicillin; Z88.8 Allergy status to other drugs, medicaments and biological substances; Z90.710 Acquired absence of both cervix and uterus; Z90.49 Acquired absence of other specified parts of digestive tract; Z98.890 Other specified postprocedural states; Z83.3 Family history of diabetes mellitus; Z79.01 Long term (current) use of anticoagulants; Z79.899 Other long term (current) drug therapy
CPT/HCPCS: 36415; 36416; 71045; 80053; 83880; 84484; 85025; 90653; 93005; 96374; 96375; 96376; G0378; J0461; J2470

== ENCOUNTER 2025-02-17 10:24 | Emergency (ER) | payer MEDICARE, OTHER ==
[2025-02-17] MEDS ORDERED: Lidocaine Viscous Sol 2% 15 ml UD Cup ONE (10:55)
[2025-02-17] MEDS ORDERED: Milk Of Magnesia 30 ML UDCUP ONE (10:55)
[2025-02-17] MEDS ORDERED: Famotidine/PF 20 mg/2ml Vial ONE (10:56)
[2025-02-17 11:04] LABS: #Basophils 0.03 10x3/uL (0.0-0.2); #Eosinophils 0.16 10x3/uL (0.0-0.7); #Monocytes 0.70 10x3/uL (0.11-0.59); #Neutrophils 3.02 10x3/uL (1.40-6.50); %Basophils 0.6 % (0.0-1.0); %Eosinophils 3.0 % (0.0-10.0); %Lymphocytes 26.3 % (21.0-51.0); %Monocytes 13.1 % (0.0-10.0); %Neutrophils 56.6 % (42.0-75.0); Hematocrit 33.6 % (36.0-47.0); Hemoglobin 10.6 g/dL (12.0-16.0); Mean Corpuscular Hemoglobin 31.2 pg (27.0-31.0); Mean Corpuscular Volume 98.8 fL (78.0-98.0); Platelet Count 280 10x3/uL (130-400); Red Blood Cell (RBC) Count 3.40 mill/uL (4.20-5.40); White Blood Cell (WBC) Count 5.33 10x3/uL (4.8-10.8)
[2025-02-17 12:36] LABS: ALT (SGPT) 15 U/L (Less than 34); AST (SGOT) 28 U/L (11-34); Albumin 2.6 g/dL (3.1-4.5); Alkaline Phosphatase 80 U/L (40-110); Anion Gap 12 mmol/L (10-20); BUN (Urea Nitrogen) 12 mg/dL (9.8-20.1); Bilirubin, Total 0.8 mg/dL (0.3-1.2); Calc. Creatinine Clearance 0 mL/min (70-130); Calcium 8.5 mg/dL (7.8-10.44); Carbon Dioxide 30 mmol/L (23-31); Chloride 100 mmol/L (98-107); Globulin 3.0 g/dL (2.4-3.5); Glucose 92 mg/dL (83-110); Lipase 12 U/L (8-78); Potassium 3.1 mmol/L (3.5-5.1); Sodium 139 mmol/L (136-145)
== END 2025-02-17 16:03 | disposition home or self-care (01) ==
LOC: ERS 10:24
DX: R07.89 Other chest pain (principal); I48.91 Unspecified atrial fibrillation; I11.0 Hypertensive heart disease with heart failure; I50.9 Heart failure, unspecified; E87.6 Hypokalemia
CPT/HCPCS: 71045; 80053; 83690; 83880; 84484 ×2; 85025; 93005; 94760; J1308; 36415; 96374

== ENCOUNTER 2025-02-24 08:29 | Outpatient (CLI) | payer MEDICARE, OTHER | END 2025-02-24 08:30 | disposition home or self-care (01) | LOC: NM 08:29 | PROVIDERS: ATTEND Specialist | DX: E21.3 Hyperparathyroidism, unspecified (principal); I28.1 Aneurysm of pulmonary artery; I51.89 Other ill-defined heart diseases; I25.10 Atherosclerotic heart disease of native coronary artery without angina pectoris; M19.019 Primary osteoarthritis, unspecified shoulder; M47.819 Spondylosis without myelopathy or radiculopathy, site unspecified | CPT/HCPCS: 78072; A9500 ==